=== PATIENT | male | born 1995 | race Caucasian/White ===

== ENCOUNTER 2020-03-05 11:58 | Emergency (ER) | payer SELFPAY ==
[2020-03-05] MEDS ORDERED: Ondansetron ODT 4 MG TAB ONE (12:24)
== END 2020-03-05 13:06 | disposition home or self-care (01) ==
LOC: MADERS 11:58
DX: K52.9 Noninfective gastroenteritis and colitis, unspecified (principal); F17.210 Nicotine dependence, cigarettes, uncomplicated
CPT/HCPCS: 99283; Q0162